=== PATIENT | female | born 1990 | race Hispanic/Latino ===

== ENCOUNTER 2018-02-22 15:55 | Inpatient (IN) | payer MEDICAID ==
[~2018-02-22] VITALS: Ht 160 cm; Wt 87.1 kg
[~2018-02-22 15:55] MED LIST: PREN-147 PO
[2018-02-22] MEDS ORDERED: OXYTOCIN 10 UNIT/1ML 10ML VIAL ONE (16:08)
[2018-02-22] MEDS ORDERED: DURAMORPH PF1 MG/ML 10ML AMP IV ONE (16:08)
[2018-02-22] MEDS ORDERED: LACTATED RINGERS 1000ML 1,000 ML IV SCH (16:30)
[2018-02-22] MEDS ORDERED: CEFAZOLIN SODIUM 1 GM VIAL IVP PRN (16:30)
[2018-02-22 16:39] LABS: MEAN CORPUSCULAR HGB CONC 33.6 g/dL (32.0-36.0); MEAN CORPUSCULAR VOLUME 89.4 fL (79-99); PLATELET COUNT (AUTO) 207 K/uL (130-400); RED BLOOD CELL COUNT(AUTO) 4.48 MIL/uL (4.00-5.50); RED CELL DISTRIBUTION WIDTH 14.7 % (11.0-15.5); WHITE BLOOD COUNT (AUTO) 13.6 K/uL (4.8-10.8)
[2018-02-22 17:14] LABS: APPEARANCE,URINE Clear (CLEAR); BILIRUBIN,URINE Negative (NEGATIVE); COLOR,URINE Yellow (YELLOW); GLUCOSE, URINE (UA) Negative (NEGATIVE); KETONES,URINE Negative (NEGATIVE); LEUKOCYTE ESTERASE ,URINE Negative (NEGATIVE); NITRATE,URINE Negative (NEGATIVE); OCCULT BLOOD,URINE Negative (NEGATIVE); PH,URINE 7.5 (5.0-8.0); PROTEIN,URINE Negative (NEGATIVE); UROBILINOGEN,URINE 0.2 mg/dL (0.2-1.0)
[2018-02-22] MEDS ORDERED: CEFAZOLIN SODIUM 1 GM VIAL ONE (17:15)
[2018-02-22 17:16] LABS: CREATININE 0.6 mg/dL (0.5-1.5); POTASSIUM 3.9 mmol/L (3.5-5.1)
[2018-02-22 17:19] LABS: INR 0.87 (0.85-1.15); PARTIAL THROMBOPLASTIN TIME 27.6 SEC (26.3-35.5); PROTHROMBIN TIME 9.2 SEC (9.6-11.6)
[2018-02-22 17:21] LABS: ALBUMIN 2.8 g/dL (3.5-5.0); BILIRUBIN,TOTAL 0.2 mg/dL (0.2-1.0); URIC ACID 6.9 mg/dL (2.6-7.2)
[2018-02-22] MEDS ORDERED: CEFAZOLIN SODIUM 1 GM VIAL IVP ONE (17:33)
[2018-02-22] MEDS ORDERED: OXYTOCIN-LR 20 UNITS/1000 ML 1,000 ML IV PRN (18:46)
[2018-02-22] MEDS ORDERED: SODIUM CHLORIDE 0.9% 10 ML VIAL IVP PRN (19:00)
[2018-02-22] MEDS ORDERED: DEXTROSE 5 %-0.45 % NACL 1,000 ML IV PRN (19:00)
[2018-02-22] MEDS ORDERED: MORPHINE SULFATE 2 MG/ML 1ML SYG IVP PRN (19:15)
[2018-02-22] MEDS ORDERED: ONDANSETRON HCL 4 MG/2 ML VIAL IVP PRN ×2 (19:15)
[2018-02-22] MEDS ORDERED: HYDROCODONE/ACETAMINOPHEN 5/325 MG TAB PO PRN ×2 (19:15)
[2018-02-22] MEDS ORDERED: EPHEDRINE SULFATE 50 MG/ML AMPULE IVP PRN (19:15)
[2018-02-22] MEDS ORDERED: NALOXONE HCL 0.4 MG/1 ML ML IVP PRN ×2 (19:15)
[2018-02-22] MEDS ORDERED: METOCLOPRAMIDE 10 MG/2 ML VIAL IVP PRN (19:15)
[2018-02-22] MEDS ORDERED: PROMETHAZINE HCL 25 MG/ML 1ML AMPULE IM PRN (19:15)
[2018-02-22] MEDS ORDERED: DiphenhydrAMINE HCL 50 MG/ML VIAL IVP PRN (19:15)
[2018-02-22] MEDS ORDERED: ONDANSETRON HCL 4 MG/2 ML 8 MG in SODIUM CHLORIDE 0.9% 50 ML IVP NR (19:15)
[2018-02-22] MEDS: MEPERIDINE-PF 75 MG/ML SYG IM PRN ×2 (20:49→23:49)
[2018-02-22] MEDS: PROMETHAZINE HCL 25 MG/ML 1ML AMPULE IM PRN ×2 (20:51→23:48)
[2018-02-22 21:28] VITALS: BP 130/80
[2018-02-22] MEDS ORDERED: OXYTOCIN 10 USP UNITS/ML ONE ×2 (22:24→22:25)
[2018-02-23] VITALS (7 sets, daily range): BP systolic 127–145; BP diastolic 79–91
[2018-02-23 05:30] LABS: HEMATOCRIT 36.6 % (36-48); MEAN CORPUSCULAR HEMOGLOBIN 29.8 pg (27.0-33.0); MEAN CORPUSCULAR HGB CONC 33.2 g/dL (32.0-36.0); PLATELET COUNT (AUTO) 130 K/uL (130-400); RED BLOOD CELL COUNT(AUTO) 4.07 MIL/uL (4.00-5.50); RED CELL DISTRIBUTION WIDTH 14.9 % (11.0-15.5); WHITE BLOOD COUNT (AUTO) 14.5 K/uL (4.8-10.8)
[2018-02-23] MEDS ORDERED: MEASLES/MUMPS/RUBELLA VACCINE, LIVE 0.5 ML/VIAL SQ SCH (07:45)
[2018-02-23] MEDS ORDERED: BISACODYL 10 MG SUPP.RECT RC PRN (07:45)
[2018-02-23] MEDS ORDERED: DIPH,PERTUSS(ACELL),TET VAC/PF 0.5 ML VIAL IM SCH (07:45)
[2018-02-23] MEDS: IBUPROFEN 600 MG TABLET PO PRN ×2 (09:38→18:28)
[2018-02-23] MEDS: SIMETHICONE 80 MG TAB.CHEW PO PRN ×3 (09:38→20:44)
[2018-02-23] MEDS: DOCUSATE SODIUM 100 MG CAP PO SCH ×2 (09:38→20:44)
[2018-02-24 04:13] VITALS: BP 132/80
[2018-02-24] MEDS: IBUPROFEN 600 MG TABLET PO PRN ×2 (04:23→14:48)
[2018-02-24 05:15] LABS: HEPATITIS Bs ANTIGEN SCREEN P Negative (Negative)
[2018-02-24 07:41] VITALS: BP 131/86
[2018-02-24] MEDS: SIMETHICONE 80 MG TAB.CHEW PO PRN ×2 (08:41→14:47)
[2018-02-24] MEDS: DOCUSATE SODIUM 100 MG CAP PO SCH (08:41)
[2018-02-24] MEDS: ACETAMINOPHEN-CODEINE 300/30MG TAB PO PRN ×2 (09:51→14:49)
[2018-02-24 11:06] VITALS: BP 136/79
[2018-02-24 15:48] VITALS: BP 130/83
== END 2018-02-24 16:40 | disposition home or self-care (01) | DRG 540 ==
LOC: OBSVTOIN 15:55 → LDH 15:55 → WSH 21:25
PROVIDERS: ADMIT Obstetrics & Gynecology; ATTEND Obstetrics & Gynecology
PROC: 3E0234Z Introduction of Serum, Toxoid and Vaccine into Muscle, Percutaneous Approach (ICD-10-PCS; 2018-02-22)
PROC: 3E0134Z Introduction of Serum, Toxoid and Vaccine into Subcutaneous Tissue, Percutaneous Approach (ICD-10-PCS; 2018-02-22)
PROC: 10D00Z1 Extraction of Products of Conception, Low, Open Approach (ICD-10-PCS; principal; 2018-02-22 17:25)
DX: O34.211 Maternal care for low transverse scar from previous cesarean delivery (principal); O14.94 Unspecified pre-eclampsia, complicating childbirth; Z3A.37 37 weeks gestation of pregnancy; Z37.0 Single live birth; Z23 Encounter for immunization; Z83.3 Family history of diabetes mellitus; Z82.49 Family history of ischemic heart disease and other diseases of the circulatory system
CPT/HCPCS: 36415; 59510; 80053; 80305; 81001; 81003; 84550; 85025; 85027; 85384; 85610; 85730; 86592; 86850; 86900; 86901; 87340; 90715; 96360; 96361; A4344; A4450; A4606; G0378; J0690; J2175; J2274; J2550; J2590; J7120

== ENCOUNTER 2018-10-30 21:14 | Emergency (ER) | payer MEDICAID | END 2018-10-30 22:56 | disposition home or self-care (01) | LOC: EDH 21:14 | DX: R51 Headache (principal); Z98.890 Other specified postprocedural states ==

== ENCOUNTER 2022-04-12 15:44 | Emergency (ER) | payer OTHER, MEDICAID ==
[2022-04-12 16:01] VITALS: BP 131/88
== END 2022-04-12 17:12 | disposition left against medical advice (07) ==
LOC: EDH 15:44
DX: M79.671 Pain in right foot (principal); Z53.21 Procedure and treatment not carried out due to patient leaving prior to being seen by health care provider
CPT/HCPCS: 73630

== ENCOUNTER 2023-07-28 10:15 | Emergency (ER) | payer MEDICAID, OTHER ==
[~2023-07-28] VITALS: Ht 160 cm; Wt 83.9 kg
[2023-07-28 10:22] VITALS: BP 144/84; PULSE 105; RESP 14; O2SAT 100
[2023-07-28 10:59] LABS: APPEARANCE,URINE CLEAR (CLEAR); BILIRUBIN,URINE NEGATIVE (NEGATIVE); GLUCOSE, URINE (UA) NEGATIVE (NEGATIVE); KETONES,URINE NEGATIVE (NEGATIVE); LEUKOCYTE ESTERASE ,URINE NEGATIVE Leu/uL (NEGATIVE); NITRATE,URINE NEGATIVE (NEGATIVE); OCCULT BLOOD,URINE NEGATIVE (NEGATIVE); PROTEIN,URINE NEGATIVE (NEGATIVE); UROBILINOGEN,URINE 0.2 mg/dL (0.2-1.0)
[2023-07-28] MEDS ORDERED: MAG/ALUM/SIMETH 30 ML UDCUP PO ONE (11:00)
[2023-07-28] MEDS ORDERED: FAMOTIDINE 20MG TAB PO ONE (11:00)
[2023-07-28 11:01] LABS: HCG,QUALITATIVE URINE NEGATIVE (NEGATIVE)
[2023-07-28 11:02] LABS: ADD UA MICROSCOPIC NO; COLOR,URINE LIGHT-YELLOW (YELLOW)
[2023-07-28 11:03] LABS: HEMATOCRIT 39.4 % (36-48); MEAN CORPUSCULAR VOLUME 88.3 fL (79-99); RED BLOOD CELL COUNT(AUTO) 4.46 MIL/uL (4.00-5.50); RED CELL DISTRIBUTION WIDTH 12.8 % (11.0-15.5); WHITE BLOOD COUNT (AUTO) 9.4 K/uL (4.8-10.8)
[2023-07-28 11:23] LABS: CREATININE 0.6 mg/dL (0.5-1.5); POTASSIUM 3.6 mmol/L (3.5-5.1)
[2023-07-28 11:27] LABS: ALBUMIN 3.8 g/dL (3.5-5.0); BILIRUBIN,TOTAL 0.3 mg/dL (0.2-1.0)
[2023-07-28] MEDS ORDERED: OMEP40CA21 PO (11:38)
[2023-07-28] MEDS ORDERED: SUCR1TAB PO (11:38)
== END 2023-07-28 11:46 | disposition home or self-care (01) ==
LOC: EDH 10:15
DX: K29.00 Acute gastritis without bleeding (principal); F41.9 Anxiety disorder, unspecified; E78.00 Pure hypercholesterolemia, unspecified; F32.A Depression, unspecified; Z79.899 Other long term (current) drug therapy; Z98.890 Other specified postprocedural states
CPT/HCPCS: 36415; 80053; 81003; 81025; 83690; 84703; 85027; 93005

== ENCOUNTER 2025-03-11 08:56 | Inpatient (IN) | payer SELFPAY ==
[~2025-03-11] VITALS: Ht 160 cm; Wt 85.7 kg
[~2025-03-11 08:56] MED LIST changes: +OMEP40CA21 PO; +SUCR1TAB PO
[2025-03-11 09:29] LABS: IMMATURE GRANULOCYTE ABSOLUTE 0.07 K/uL (0-1); NUCLEATED RED BLOOD CELLS 0.0 % (0.0-0.19); PLATELET COUNT (AUTO) 340 K/uL (130-400); RED BLOOD CELL COUNT(AUTO) 4.61 MIL/uL (4.00-5.50); RED CELL DISTRIBUTION WIDTH 12.1 % (11.0-15.5); WHITE BLOOD COUNT (AUTO) 14.6 K/uL (4.8-10.8)
--- NOTE | 2025-03-11 09:33 | EKG ---
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
[2025-03-11 09:38] LABS: CREATININE 0.6 mg/dL (0.5-1.0); GLOMERULAR FILTR. RATE CALC 121.0 mL/min (>90); GLUCOSE,RANDOM 94.0 mg/dL (70-105); SODIUM SERUM 135.0 mmol/L (136-145); UREA NITROGEN, BLOOD 8.0 mg/dL (7-18)
[2025-03-11 09:40] LABS: ASPARTATE AMINOTRANSFERASE 38.0 U/L (10-37); TOTAL PROTEIN, SERUM 8.0 g/dL (6.0-8.3)
--- NOTE | 2025-03-11 09:55 | ERN ---
General Chief Complaint: Chest Pain Stated Complaint: CP Time Seen by MD: 08:57 Source: patient, family History of Present Illness Initial Comments PATIENT IS A 34-YEAR-OLD FEMALE COMING IN FOR CHEST PRESSURE CHEST DISCOMFORT. PER PATIENT THIS CHEST DISCOMFORT BEGAN EARLIER IN THE MORNING. HE SHE STATES THAT SHE HAS HAD SOMETHING SIMILAR IN THE PAST. SHE DOES HAS A HISTORY OF PREDIABETES CHOLESTEROL HYPERTENSION. Allergies: Coded Allergies: No Known Drug Allergies (Unverified Allergy, Unknown, 10/17/14) Home Meds Active Scripts Sucralfate (Carafate) 1 Gram Tablet, 1 GM PO QID, #40 TAB Prov:SEJAL MIRANAD AGRICULTURIST 07/28/23 Omeprazole (Omeprazole) 40 Mg Capsule.dr, 40 MG PO DAILY, #30 CAP Prov:SEJAL MIRANDA AGRICULTURIST 07/28/23 Reported Medications Vits #90/Iron Fum/FA ( Formula Tablet) 1 Each Tablet, 1 EACH PO DAILY, TAB 12/27/16 Past Medical History Past Medical History: Anxiety, Bipolar, Depression, High Cholesterol, Schizophrenia Past Surgical History: Female( History) History: Not Applicable ROS Dictation CONSTITUTIONAL: NO CHILLS, NO FEVER, NO WEAKNESS, NO DIAPHORESIS, NO MALAISE. HEAD/FACE: NO SIGNS OF TRAUMA. EENT: NO EYE PAIN, NO BLURRED VISION, NO TEARING, NO DOUBLE VISION, NO EAR PAIN, NO EAR DISCHARGE, NO NOSE PAIN, NO NASAL CONGESTION, NO THROAT PAIN, NO THROAT SWELLING, NO MOUTH PAIN. RESPIRATORY: NO COUGH, NO ORTHOPNEA, NO SOB, NO STRIDOR, NO WHEEZING. CARDIOVASCULAR: CHEST PAIN, NO EDEMA, NO PALPITATIONS, NO SYNCOPE. GASTROINTESTINAL/ABDOMINAL: NO ABDOMINAL PAIN, NO CONSTIPATION, NO DIARRHEA, NO NAUSEA, NO VOMITING. GENITOURINARY: NO ABNORMAL DISCHARGE, NO DYSURIA, NO FREQUENT URINATION, NO HEMATURIA. NO COMPLAINTS OF PAIN IN THE GENITALS. MUSCULOSKELETAL: NO BACK PAIN, NO GOUT, NO JOINT PAIN, NO JOINT SWELLING, NO MUSCLE PAIN, NO MUSCLE STIFFNESS, NO NECK PAIN. INTEGUMENTARY: NO CHANGE IN COLOR, NO CHANGE IN HAIR/NAILS, NO DRYNESS, NO LESION, NO LUMPS, NO RASH. NEUROLOGICAL/PSYCH: NO ANXIETY, NOT DEPRESSED, NO EMOTIONAL PROBLEM, NO HEADACHE, NO NUMBNESS, NO PRE-EXISTING DEFICIT, NO HISTORY OF SEIZURES, NO TREMORS, NO WEAKNESS. HEMATOLOGIC/LYMPHATIC: NOT ANEMIC, NO HISTORY OF BLOOD CLOTS, NO APPARENT BLEEDING, NO BRUISING, GLANDS NOT SWOLLEN. ALL SYSTEMS NEGATIVE, EXCEPT NOTED. Physical Exam Physical Exam Dictation VITAL SIGNS: REVIEWED. GENERAL APPEARANCE: ALERT, ORIENTED X3, NO ACUTE DISTRESS, OBESE. HEAD AND FACE: NON-TRAUMATIC. EYES: PERRL, PINK CONJUNCTIVAS, EYELID NO TRAUMA, ANTERIOR CHAMBER CLEAR. EARS: PINNAS INTACT AND NO SIGNS OF TRAUMA OR ERYTHEMA. EAR CANALS CLEAR AND NO DISCHARGE. TMS NO ERYTHEMA. NOSE: NO DISCHARGE, NO BLEEDING. OROPHARYNX: MOUTH NORMAL, TEETH NO CARIES, TONGUE PINK. PHARYNX CLEAR, NO ERYTHEMA. TONSILS NO EXUDATES, NO ABSCESSES NOTED. MUCOUS MEMBRANE MOIST. NECK: SUPPLE, NON-TENDER, NO THYROMEGALY, NO MASSES, NO JVD, NO BRUITS. BREAST: DEFERRED. CHEST: NO TENDERNESS, NO CREPITUS, NO PARADOXICAL MOVEMENT, NO RETRACTIONS. LUNGS: CLEAR, WELL-VENTILATED, SYMMETRIC, NO RALES, NO WHEEZING, NO RHONCHI, NO STRIDOR, GOOD BREATH SOUNDS BILATERALLY. HEART: REGULAR RATE, REGULAR RHYTHM, NO MURMUR, NO GALLOPS. VASCULAR: NO PERIPHERAL EDEMA. ABDOMEN: SOFT, POSITIVE BOWEL SOUNDS, NONDISTENDED, NO GUARDING, NONTENDER, NO REBOUND, NO MASSES NO HEPATOMEGALY, NO SPLENOMEGALY, NO FERMIN'S SIGN, NO HERNIAS. RECTAL: DEFERRED. GENITAL: DEFERRED. NEUROLOGICAL: NORMAL SPEECH, GROSS MOTOR FUNCTION INTACT, GROSS SENSORY FUNCTION INTACT. MUSCULOSKELETAL: NECK NONTENDER, FULL RANGE OF MOTION, BACK NONTENDER, FULL RANGE OF MOTION. EXTREMITIES: NONTENDER, FULL RANGE OF MOTION. SKIN: COLOR PINK, DRY, NO TURGOR, NO RASH, NO LACERATIONS, NO ABRASIONS, NO CONTUSIONS. LYMPHATICS: DEFERRED. Results Laboratory and Microbiology Lab and Micro Result Laboratory Tests Test 03/11/25 09:21 White Blood Count 14.6 K/uL (4.8-10.8) H Red Blood Count 4.61 MIL/uL (4.00-5.50) Hemoglobin 14.2 g/dL (12.0-16.0) Hematocrit 41.7 % (36-48) Mean Corpuscular Volume 90.5 fL (79-99) Mean Corpuscular Hemoglobin 30.8 pg (27.0-33.0) Mean Corpuscular Hemoglobin Concent 34.1 g/dL (32.0-36.0) Red Cell Distribution Width 12.1 % (11.0-15.5) Platelet Count 340 K/uL (130-400) Mean Platelet Volume 9.4 fL (7.5-10.5) Immature Granulocyte % (Auto) 0.5 % (0-1) Neutrophils (%) (Auto) 64.3 % (40.0-77.0) Lymphocytes (%) (Auto) 28.7 % (21.0-51.0) Monocytes (%) (Auto) 4.4 % (3.0-13.0) Eosinophils (%) (Auto) 1.6 % (0.0-8.0) Basophils (%) (Auto) 0.5 % (0.0-5.0) Neutrophils # (Auto) 9.4 K/uL (1.8-7.7) H Lymphocytes # (Auto) 4.2 K/uL (1.0-4.8) Monocytes # (Auto) 0.6 K/uL (0.1-1.0) Eosinophils # (Auto) 0.24 K/uL (0.00-0.70) Basophils # (Auto) 0.07 K/uL (0.00-0.20) Absolute Immature Granulocyte (auto 0.07 K/uL (0-1) Nucleated Red Blood Cells 0.0 % (0.0-0.19) Sodium Level 135 mmol/L (136-145) L Potassium Level 4.1 mmol/L (3.5-5.1) Chloride Level 100 mmol/L (101-111) L Carbon Dioxide Level 25 mmol/L (21-32) Blood Urea Nitrogen 8 mg/dL (7-18) Creatinine 0.6 mg/dL (0.5-1.0) Glomerular Filtration Rate Calc 121 mL/min (>90) Random Glucose 94 mg/dL (70-105) Total Calcium 9.4 mg/dL (8.5-10.1) Total Bilirubin 0.2 mg/dL (0.2-1.0) Aspartate Amino Transf (AST/SGOT) 38 U/L (10-37) H Alanine Aminotransferase (ALT/SGPT) 79 U/L (12-78) H Alkaline Phosphatase 82 U/L (50-136) Troponin I High Sensitivity 72 ng/L (4-50) *H Total Protein 8.0 g/dL (6.0-8.3) Albumin 4.0 g/dL (3.5-5.0) Lipase 42 U/L (16-77) Labs Reviewed?: Yes EKG/XRAY/US/CT/MRI EKG Comment 03/11/2025 TIME 9:04 A.M. VENTRICULAR RATE 99 SINUS RHYTHM DC [address] WAVE ELEVATION OR DEPRESSION MDM MDM: DIFFERENTIAL DIAGNOSIS: NSTEMI, ACS, STEMI, RATIONALE: TESTS CONSIDERED AND ORDERED SECONDARY TO SHARED DECISION MAKING INCLUDE: LABS, ECG AND RADIOLOGY PREVIOUS OUTSIDE RECORDS REVIEWED: OLD ER VISITS. RISK OF COMPLICATION AND/OR MORBIDITY OR MORTALITY OF PATIENT MANAGEMENT: NONE MEDICATIONS-PER MEDICATION RECONCILIATION NEED FOR HOSPITALIZATION: PATIENT DOES MEET CRITERIA FOR HOSPITALIZATION. NEED FOR EMERGENCY MAJOR/MINOR SURGERY: NO THERE ARE NO SOCIAL CONCERNS WITH THIS PATIENT. PRESCRIPTION DRUG MANAGEMENT PRESCRIPTIONS WILL INCLUDE SYMPTOMATIC CARE PATIENT'S PRIOR EXTERNAL MEDICAL RECORDS FROM OTHER ER VISITS WERE REVIEWED BY ME INDICATED. PRIOR TESTING AND RESULTS FROM PREVIOUS VISITS WERE REVIEWED. PRIOR TESTS WERE TAKEN INTO ACCOUNT WITH MEDICAL DECISION MAKING AND RESOURCE UT ILIZATION, INDEPENDENT HISTORIAN/HISTORIANS WERE USED TO OBTAIN COMPLETE MEDICAL HISTORY. I INDEPENDENTLY INTERPRETED THE TEST THAT WERE PERFORMED, RESULTS WERE REVIEWED BY ME AND CONSIDERED FINDINGS ON RADIOLOGY IF ORDERED. MEDICAL MANAGEMENT AND EXAMINATION INTERPRETATION DISCUSSIONS WERE HAD BY ME WITH OTHER QUALIFIED HEALTHCARE PROFESSIONALS INDICATED FOR THE PATIENT'S CAR E. PATIENT WILL BE ADMITTED UNDER THE CARE OF HOSPITALIST GROUP ED Course Orders Procedure Category Date Status Time Cbc With Differential LAB 03/11/25 Complete 08:59 Chest 1vw RAD 03/11/25 Logged 08:59 12 Lead Ekg Tracing- EKG 03/11/25 Resulted Technical 08:59 ,Urine Test LAB 03/11/25 Logged 08:59 Troponin I High LAB 03/11/25 Complete Sensitivity 08:59 Urinalysis Profile LAB 03/11/25 Logged 08:59 Pantoprazole 40mg Inj PHA 03/11/25 Complete (Protonix 40mg Inj 09:00 0.9%Nacl 1000ml (Ns PHA 03/11/25 Complete 1000ml) 09:00 Comprehensive LAB 03/11/25 Complete Metabolic Panel 08:59 Lipase LAB 03/11/25 Complete 08:59 Troponin I High LAB 03/11/25 Logged Sensitivity 09:48 Nitroglycerin 0.4mg PHA 03/11/25 In Process Sl Tab (Nitrostat) 10:00 Drug Screen Urine LAB 03/11/25 Logged 09:53 Testing, LAB 03/11/25 Logged Serum Hcg 09:59 Current Medications Medications (Trade) Dose Ordered Sig/Jojo Route PRN Reason Start Time Stop Time Status Last Admin Dose Admin Nitroglycerin (Nitrostat) 0.4 mg AD PRN SL CHEST PAIN 03/11/25 10:00 04/10/25 09:59 Pantoprazole Sodium (PROTonix 40MG INJ) 40 mg ONCE ONCE IVP 03/11/25 09:00 03/11/25 09:05 DC 03/11/25 10:00 Sodium Chloride 1,000 ml @ 0 mls/hr ONCE ONCE IV 03/11/25 09:00 03/11/25 09:05 DC 03/11/25 10:00 DX & DISP Disposition: Inpatient Decision to Admit Time: 10:04 Departure Impression: Primary Impression: ACS (acute coronary syndrome) Condition: Stable Referrals: SELF,REFERRAL (PCP) SAM PERSAUD MD Mar 11, 2025 09:55
[2025-03-11] MEDS ORDERED: NITROGLYCERIN 0.4 MG SL TAB SL PRN (10:00)
[2025-03-11] MEDS: 0.9%NACL 1000ML 1,000 ML IV ONE (10:00)
[2025-03-11 10:41] LABS: APPEARANCE,URINE CLEAR (CLEAR); GLUCOSE, URINE (UA) NEGATIVE (NEGATIVE); LEUKOCYTE ESTERASE ,URINE NEGATIVE Leu/uL (NEGATIVE); NITRATE,URINE NEGATIVE (NEGATIVE); OCCULT BLOOD,URINE NEGATIVE (NEGATIVE)
[2025-03-11 10:48] LABS: ADD UA MICROSCOPIC NO; AMPHET/METH SCREEN,URINE NEGATIVE (NEGATIVE); BARBITURATE SCREEN, URINE NEGATIVE (NEGATIVE); CANNABINOID SCREEN,URINE NEGATIVE (NEGATIVE); COCAINE SCREEN,URINE NEGATIVE (NEGATIVE)
--- NOTE | 2025-03-11 10:55 | HP ---
[facility] HISTORY [facility] PHYSICAL Date of Service: Mar 11, 2025 Time of Service: 10:54 HISTORY OF PRESENT ILLNESS: Date of service: 03/11/2025 34-year-old female with no significant past medical history who presented to the hospital secondary to chest pain. Patient states she started having chest pain today around 6:00 a.m. in the morning. Pain is located in the epigastric/midsternal area. Pain radiates to the center of her chest. She describes the pain as ' someone was squeezing her chest'. She denied any pa resthesias, pain radiating towards her, jaw. She denied any emesis but has been feeling nauseated. She has also noted diarrhea at home and has around three episodes of loose stools. Denied eating any uncooked food or any sick contacts at home. She denies any melena, hematochezia, hematemesis. Denied any dysuria, changes in her urinary frequency. Denied any fever, cough, shortness for breath, falls, syncopal episode. She currently does not take any medications at home. Secondary to non improving symptoms patient thereafter came to the hospital for further evaluation. Labs labs in the ED were notable for white count of 14.6, hemoglobin was 14.2, platelet count was 340 K, sodium was 135, potassium was 4.1, chloride was 100, AST was 38, ALT was 79, troponin was mildly elevated at 72, albumin was 4.0, lipase was negative, serum was negative. Patient had a chest x-ray done which showed no acute infiltrates. REVIEW OF SYSTEMS CONSTITUTIONAL: Denies fevers, chills, or night sweats. No unintentional weight loss reported. NEUROLOGICAL: Denies headache, amaurosis fugax, motor weakness, sensory deficit, vertigo/spinning sensation, gait abnormalities, or tremors. ENT: No hearing loss, otalgia, otorrhea, rhinitis, rhinorrhea, hoarseness, or sore throat. CARDIOVASCULAR: Positive for chest pain. Denied any PND, orthopnea, palpitations PULMONARY: Denies any shortness of breath, cough, phlegm/sputum, hemoptysis, pleuritic chest pain. GASTROINTESTINAL: Positive for nausea, diarrhea. Denied any constipation, melena, hematochezia, hematemesis GENITOURINARY: Denies frequency, urgency, nocturia, hematuria or incontinence (Storage/Irritative symptoms.) Low urinary stream, straining to void, urinary intermittency or hesitancy, splitting of the voiding stream, terminal dribbling. ENDOCRINOLOGIC: Denies polyuria, polydipsia, polyphagia or heat/cold intolerances. HEMATOLOGIC: Denies thrombophilia/previous clots, or coagulopathy/bleeding disorders. ONCOLOGIC: Denies personal history of malignancy. DERMATOLOGIC: Denies rashes or pruritus. PSYCHIATRIC: Denies any suicidal or homicidal ideation. Denies hallucinations. PAST MEDICAL HISTORY: No Significant past medical history PAST SURGICAL HISTORY: History of x4 PAST SOCIAL HISTORY: Denied any smoking. Drinks alcohol once a month occasionally. Denied any drug use FAMILY HISTORY: History of carotid artery stenosis in father Coded Allergies: No Known Drug Allergies (Unverified Allergy, Unknown, 10/17/14) PHYSICAL EXAM GENERAL APPEARANCE: The patient is awake, alert, and oriented, in no acute c ardiopulmonary distress. NEUROLOGICAL: Cranial nerves II-XII grossly intact. Motor is 5/5 in bilateral upper and lower extremities proximal to distal. No sensory deficits. HEENT: Face is symmetric. Pupils are equal and reactive. Extraocular movements are intact. NECK: Supple. No JVD. No thyromegaly. No submental, submandibular, pre- /postauricular, occipital or supraclavicular lymphadenopathy. CHEST: Normal chest expansion. No Telemetry. Tenderness to palpation in the anterior chest wall LUNGS: Absence of any rales, rhonchi or any wheezing. CARDIOVASCULAR: Regular. S1 and S2 normal. No appreciable rubs, murmurs or gallops. ABDOMEN: Soft, nontender, and nondistended. There is no rebound, voluntary guarding, or rigidity. : Deferred. No Dai. EXTREMITIES: Non-edematous and not cyanotic. No clubbing. Good capillary refill. SKIN: No skin breakdown. LABS: Laboratory: Test 03/11/25 10:16 03/11/25 09:21 Range/Units Urine Color LIGHT-YELLOW YELLOW Urine Appearance CLEAR CLEAR Urine pH 7.5 5.0-8.0 Urine Specific [place] 1.025 1.001-1.031 Urine Protein NEGATIVE NEGATIVE mg/dL Urine Glucose (UA) NEGATIVE NEGATIVE mg/dL Urine Ketones NEGATIVE NEGATIVE mg/dL Urine Occult Blood NEGATIVE NEGATIVE Urine Nitrate NEGATIVE NEGATIVE Urine Bilirubin NEGATIVE NEGATIVE mg/dL Urine Urobilinogen 0.2 0.2-1.0 mg/dL Urine Leukocyte Esterase NEGATIVE NEGATIVE Valerie/uL Urine Opiates Screen NEGATIVE NEGATIVE Urine Barbiturates Screen NEGATIVE NEGATIVE Urine Phencyclidine Screen NEGATIVE NEGATIVE Urine Amphetamines Screen NEGATIVE NEGATIVE Urine Benzodiazepines Screen NEGATIVE NEGATIVE Urine Cocaine Screen NEGATIVE NEGATIVE Urine Marijuana (THC) Screen NEGATIVE NEGATIVE White Blood Count 14.6 H 4.8-10.8 K/uL Red Blood Count 4.61 4.00-5.50 MIL/uL Hemoglobin 14.2 12.0-16.0 g/dL Hematocrit 41.7 36-48 % Mean Corpuscular Volume 90.5 79-99 fL Mean Corpuscular Hemoglobin 30.8 27.0-33.0 pg Mean Corpuscular Hemoglobin Concent 34.1 32.0-36.0 g/dL Red Cell Distribution Width 12.1 11.0-15.5 % Platelet Count 340 130-400 K/uL Mean Platelet Volume 9.4 7.5-10.5 fL Immature Granulocyte % (Auto) 0.5 0-1 % Neutrophils (%) (Auto) 64.3 40.0-77.0 % Lymphocytes (%) (Auto) 28.7 21.0-51.0 % Monocytes (%) (Auto) 4.4 3.0-13.0 % Eosinophils (%) (Auto) 1.6 0.0-8.0 % Basophils (%) (Auto) 0.5 0.0-5.0 % Neutrophils # (Auto) 9.4 H 1.8-7.7 K/uL Lymphocytes # (Auto) 4.2 1.0-4.8 K/uL Monocytes # (Auto) 0.6 0.1-1.0 K/uL Eosinophils # (Auto) 0.24 0.00-0.70 K/uL Basophils # (Auto) 0.07 0.00-0.20 K/uL Absolute Immature Granulocyte (auto 0.07 0-1 K/uL Nucleated Red Blood Cells 0.0 0.0-0.19 % Sodium Level 135 L 136-145 mmol/L Potassium Level 4.1 3.5-5.1 mmol/L Chloride Level 100 L 101-111 mmol/L Carbon Dioxide Level 25 21-32 mmol/L Blood Urea Nitrogen 8 7-18 mg/dL Creatinine 0.6 0.5-1.0 mg/dL Glomerular Filtration Rate Calc 121 >90 mL/min Random Glucose 94 70-105 mg/dL Total Calcium 9.4 8.5-10.1 mg/dL Total Bilirubin 0.2 0.2-1.0 mg/dL Aspartate Amino Transf (AST/SGOT) 38 H 10-37 U/L Alanine Aminotransferase (ALT/SGPT) 79 H 12-78 U/L Alkaline Phosphatase 82 50-136 U/L Troponin I High Sensitivity 72 *H 4-50 ng/L Total Protein 8.0 6.0-8.3 g/dL Albumin 4.0 3.5-5.0 g/dL Lipase 42 16-77 U/L Serum Test, Qualitative NEGATIVE NEGATIVE Current Medications Medications (Trade) Dose Ordered Sig/Jojo Route PRN Reason Start Time Stop Time Status Last Admin Dose Admin Nitroglycerin (Nitrostat) 0.4 mg AD PRN SL CHEST PAIN 03/11/25 10:00 04/10/25 09:59 DIAGNOSTICS / RADIOLOGY: [ ] ASSESSMENT: Chest pain ACS rule out POA: Differential musculoskeletal versus GI versus ACS Troponin elevation nonspecific Suspected gastroenteritis Leukocytosis likely in setting of dehydration and suspected gastroenteritis Obesity BMI 33.5 Mild LFT elevation PLAN: - patient to be admitted to medical-surgical unit with telemetry -in reference to chest pain. We will trend troponins q.6 hours to rule out ACS. We will obtain echocardiogram. We will also obtain a CT abdomen pelvis. Secondary to troponin elevation we will request consultation with Cardiology -obtain a stool PCR panel. The patient to be started on NS for gentle hydration. Start patient on Rocephin -in reference to mild LFT elevation. Obtain a hepatitis panel. Monitor LFTs were now -check TSH, procalcitonin, CRP, D-dimer slight -further orders per hospitalization course. Advanced Care Planning Which of the following were discussed: Hospice care: Yes __ No _x_ Therapeutic options: Yes __ No __ Advance directives: Yes __ No __ Other discussions: Discussed with who?: Patient (Patient, family or surrogates) Voluntary nature of this service was explained to the patient? Yes _x_ No __ Amount of time spent: 25 minutes ALY Garcia MD, MD Mar 11, 2025 10:54
[2025-03-11] MEDS ORDERED: MAGNESIUM 2GM PREMIX 50ML 50 ML IV PRN (11:30)
[2025-03-11] MEDS ORDERED: PoTASSium chl 10% ELIXIR 20MEQ 20 MEQ/15 ML UDCUP PO PRN (11:30)
[2025-03-11] MEDS ORDERED: PoTASSium chloRIDE 20MEQ ER 20 MEQ ERTAB PO PRN (11:30)
--- NOTE | 2025-03-11 11:53 | HMCIMG ---
EXAM: CT Abdomen and Pelvis without IV contrast CLINICAL HISTORY: Epigastric and chest pain. TECHNIQUE: Thin collimated axial CT images of the abdomen and pelvis were obtained with sagittal and coronal reformatted images also submitted. CT scan is done according to ALARA (As Low As Reasonably Achievable). CONTRAST: None. COMPARISON: None. FINDINGS: Unremarkable visualized lung parenchyma. No focal abnormality within the gallbladder, pancreas, spleen, adrenals. Diffuse fatty infiltration of the liver. A tiny 2 mm nonobstructive calculus at the upper pole calyx of the left kidney. There is no obvious bowel wall thickening. Bowel loops are normal in caliber without evidence of obstruction or ileus. The appendix is normal. There is no abnormality within the urinary bladder. Unremarkable reproductive organs. No lymphadenopathy. No free fluid. Small umbilical hernia containing fat. There is no acute osseous abnormality. IMPRESSIONS: No acute process in the abdomen or pelvis. Tiny nonobstructive left renal calculus. Diffuse fatty infiltration of the liver. /[place]
--- NOTE | 2025-03-11 11:56 | HMCIMG ---
EXAM: CR Chest, 1 View. CLINICAL HISTORY: cp COMPARISON: None provided. FINDINGS: LUNGS: There is no mass, infiltrate, or acute pulmonary abnormality. PLEURAL SPACES: No pleural effusion or pneumothorax. MEDIASTINUM: The cardiomediastinal silhouette is within normal limits. BONES: No acute osseous abnormality. IMPRESSION: No acute cardiopulmonary pathology is evident. /[place]
--- NOTE | 2025-03-11 12:01 | CONS ---
We are consulted for chest pain with borderline troponin in a 34-year-old female with a normal ECG. On closer scrutiny, the patient describes epigastric burning of an intense nature, similar to previous gastritis symptoms but more intense. She has had these discomforts off and on over recent years. She has never had any exertional component, including now. The symptoms occur randomly. The current episode was present when she awoke at 6:00 a.m. and has been continuous to present and the ECG is normal. Current symptoms are associated with nausea and abdominal discomfort. The patient says sometimes she experiences a fullness or pressure in the retrosternal area, but most of her discomfort is in the epigastrium. 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 Again, there was no exertional component to any of her symptoms. Initial troponin was 72 and follow up troponin was 60; BNP is less than five. Chest x-ray is normal. ECG is normal. ALT and AST are mildly elevated but lipase is normal. There is mentioned in the chart of pre diabetes but her A1c is 5.3, normal (not prediabetic). Review of systems is negative for exertional chest pain or chest pressure, fatigue on exertion, or dyspnea on exertion. It is negative for orthopnea or paroxysmal nocturnal dyspnea. It is positive for chest discomfort as described above which is burning in character generally, sometimes pressure-like, occurs randomly and is usually prolonged. Current episode has lasted at least 6 hours. There was no history of asthma or wheezing, no history of claudication or pedal edema, but there is a positive history of similar symptoms with esophagitis and gastritis in the past. With respect to risk factors, patient believes her father had a heart problem. A1c is normal. There is mentioned of hypertension and dyslipidemia in the chart. Physical exam is notable for an overweight female who appears comfortable. No JVD, normal carotid volume, no rales or rhonchi, nonlabored respiration, no chest wall tenderness, normal bowel sounds, protuberant abdomen without tympany or distention, normal peripheral pulses, no pedal edema, skin warm and dry and patient is oriented in all spheres. Impression and recommendation: No evidence of a cardiac illness. Borderline troponins are actually trending down and could be from some other inflammatory disease or spuriously elevated. 6 hours of chest pain with normal ECG, no dyspnea, no diaphoresis, and history of similar symptoms from GI etiology points toward a GI illness. I do not recommend further cardiac evaluation or treatment at this time. Patient History: FH: ADHD (attention deficit hyperactivity disorder) SON SON Family history: Diabetes mellitus FATHER, Onset: Family history: Hypertension FATHER, Onset: Vitals/Labs Vital Signs Date Time Temp Pulse Resp B/P (MAP) Pulse Ox O2 Delivery O2 Flow Rate FiO2 03/11/25 10:26 86 18 113/80 97 Room Air* 0 21 03/11/25 09:05 98.4 Laboratory Tests 03/11/25 09:21 Allergies: Coded Allergies: No Known Drug Allergies (Unverified Allergy, Unknown, 10/17/14) Medications Current Medications Pantoprazole Sodium 40 mg ONCE ONCE IVP Last administered on 03/11/25at 10:00; Start 03/11/25 at 09:00; Stop 03/11/25 at 09:05; Status DC Sodium Chloride 1,000 ml @ 0 mls/hr ONCE ONCE IV Last administered on 03/11/25at 10:00; Start 03/11/25 at 09:00; Stop 03/11/25 at 09:05; Status DC Nitroglycerin 0.4 mg AD PRN SL; Start 03/11/25 at 10:00; Stop 04/10/25 at 09:59 Famotidine 20 mg BID IV; Start 03/11/25 at 21:00; Stop 04/10/25 at 20:59 Sodium Chloride 1,000 ml @ 100 mls/hr Q10H IV; Start 03/11/25 at 11:00; Stop 04/10/25 at 10:59 Acetaminophen 500 mg Q6H PRN PO; Start 03/11/25 at 11:00; Stop 04/10/25 at 10:59 Morphine Sulfate 2 mg Q6H PRN IVP; Start 03/11/25 at 11:00; Stop 03/18/25 at 10:59 Aspirin 81 mg DAILY PO; Start 03/12/25 at 09:00; Stop 04/11/25 at 08:59 Ceftriaxone Sodium 1 gm Q24H IVPB; Start 03/11/25 at 11:00; Stop 03/21/25 at 10:59 Ondansetron HCl 4 mg Q6H PRN IVP; Start 03/11/25 at 11:30; Stop 04/10/25 at 11:29 Potassium Chloride 100 ml @ 100 mls/hr AD PRN IV; Start 03/11/25 at 11:30; Stop 04/10/25 at 11:29 Potassium Chloride 20 meq AD PRN PO; Start 03/11/25 at 11:30; Stop 04/10/25 at 11:29 Potassium Chloride 20 meq AD PRN PO; Start 03/11/25 at 11:30; Stop 04/10/25 at 11:29 Magnesium Sulfate 50 ml @ 0 mls/hr PROTOCOL PRN IV; Start 03/11/25 at 11:30; Stop 04/10/25 at 11:29 ARSENIO MURRAY MD Mar 11, 2025 12:01
[2025-03-11] MEDS: 0.9%NACL 1000ML 1,000 ML IV SCH (12:47)
[2025-03-11 12:54] LABS: SARS-CoV-2, RNA, NAAT NEGATIVE SARS CoV-2 (NEGATIVE)
[2025-03-11 13:02] LABS: INFLUENZA TYPE A Negative For Type A (NEGATIVE); INFLUENZA TYPE B Negative For Type B (NEGATIVE)
--- NOTE | 2025-03-11 13:55 | NUR ---
DCP: HOME Pt, her Wm Conroy [id number] and heir 4 kids, ages 10,9,8,7 live in [facility]. 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 Pt able to do home management and meal prep for family. Uses no DME or in home care services. PCP is Angélica Solano uses [facility] for rx needs. Pt denies dc needs and will return home a dc. Addendum: 03/11/25 at 1406 by ATUL TORRES SS Amended: Links added.
--- NOTE | 2025-03-11 16:55 | CONS ---
GASTROENTEROLOGY CONSULTATION NOTE Date of Consultation: Mar 11, 2025 Time of Consultation: 16:48 History of Present Illness: [ This is a 34-year-old female patient with past medical history for obesity, hypertension, hyperlipidemia, anxiety and depression, bipolar and schizophrenia who presented to the emergency room with complaints of chest pressure and chest discomfort. Chest x-ray showed no acute cardiopulmonary pathology. CT of abdomen and pelvis showing no acute process in the abdomen or pelvis. Tiny nonobstructive left renal calculus. Diffuse fatty infiltration of the liver. Initial WBC of 14.6, hemoglobin 14.2, hematocrit 41.7, platelets 340. Chemistry significant for sodium of 135, chloride 100, BUN eight, creatinine 0.6, total bilirubin of 0.2, AST 38, ALT 79, alkaline phosphatase of 82. Troponin elevated at 72, total protein eight, albumin four, lipase 42. D-dimer 241. UA and urine toxicology negative. We were consulted for persistent epigastric pain, history of gastritis, fatty liver. Patient pending Cardiology consult. On exam patient is in sf in stretcher bed 14. Her respirations are unlabored. BBS clear. Abdomen is soft but tender to epigastric region. Patient reported having some nausea. Patient tolerated soft diet given for dinner. POC discussed and recommendations for endoscopic evaluation given. All her questions were answered and she agreed to proceed. Will plan for EGD on 03/13/25 since patient had regular diet and cardiac evaluation is pending. Patient and mother agreed ] Review of Systems: CONSTITUTIONAL: No malaise or change in sensation of wellbeing. ENMT: No rhinorrhea, otorrhea, sinus pain, ear ache. CARDIOVASCULAR: No angina, palpitations, orthopnea or paroxysmal dyspnea. RESPIRATORY: No SOB. GASTROINTESTINAL: No abdominal pain, nausea, vomiting, diarrhea, hematemesis, me carlos or change in the patient's habitual bowel movements consistency/number. GENITOURINARY: No dysuria, hematuria or change in bladder continence. MUSCULOSKELETAL: No new muscle pain or decrease in muscular strength. No new joint swelling, redness or tenderness. SKIN: No new rash. Past Medical History: obesity, hypertension, hyperlipidemia, anxiety and depression, bipolar and schizophrenia Coded Allergies: No Known Drug Allergies (Unverified Allergy, Unknown, 10/17/14) Physical Exam: GEN: Awake, alert, oriented in person, time and place, and in no acute distress. HEENT: No rhinorrhea. Oral pharyngeal mucosa is pink, moist and within normal limits. CHEST: Inspection, and palpation of the chest were unremarkable. Lung auscult ation revealed normal breath sounds bilaterally. CARDIAC: PMI is within normal limits. Heart sounds are regular. ABD: Soft, tender to epigastric region, and not distended. No peritoneal signs on palpation. No organomegaly. Normal bowel sounds. Last bm: 03/09/25 EXT: No cyanosis or clubbing. No edema. SKIN: Intact. No rashes. JOINTS: No evidence of synovitis or acute arthritis. NEURO: Alert and oriented to name, place and person. No focal motor deficits. Normal speech. Strength is normal. Vital Sign (Last 24 Hours) 03/11/25 16:09 Temp 97.9 Pulse 84 Resp 17 B/P (MAP) 121/85 Pulse Ox 95 O2 Delivery Room Air* O2 Flow Rate 0 FiO2 21 Laboratory: [ ] Laboratory: Test 03/11/25 12:24 03/11/25 11:21 03/11/25 10:16 03/11/25 09:21 Range/Units Influenza Type A Antigen Negative For Type A NEGATIVE Influenza Type B Antigen Negative For Type B NEGATIVE SARS-CoV-2, RNA, NAAT NEGATIVE SARS CoV-2 NEGATIVE Troponin I High Sensitivity 60 *H 4-50 ng/L Urine Color LIGHT-YELLOW YELLOW Urine Appearance CLEAR CLEAR Urine pH 7.5 5.0-8.0 Urine Specific Taberg 1.025 1.001-1.031 Urine Protein NEGATIVE NEGATIVE mg/dL Urine Glucose (UA) NEGATIVE NEGATIVE mg/dL Urine Ketones NEGATIVE NEGATIVE mg/dL Urine Occult Blood NEGATIVE NEGATIVE Urine Nitrate NEGATIVE NEGATIVE Urine Bilirubin NEGATIVE NEGATIVE mg/dL Urine Urobilinogen 0.2 0.2-1.0 mg/dL Urine Leukocyte Esterase NEGATIVE NEGATIVE Valerie/uL Urine Opiates Screen NEGATIVE NEGATIVE Urine Barbiturates Screen NEGATIVE NEGATIVE Urine Phencyclidine Screen NEGATIVE NEGATIVE Urine Amphetamines Screen NEGATIVE NEGATIVE Urine Benzodiazepines Screen NEGATIVE NEGATIVE Urine Cocaine Screen NEGATIVE NEGATIVE Urine Marijuana (THC) Screen NEGATIVE NEGATIVE White Blood Count 14.6 H 4.8-10.8 K/uL Red Blood Count 4.61 4.00-5.50 MIL/uL Hemoglobin 14.2 12.0-16.0 g/dL Hematocrit 41.7 36-48 % Mean Corpuscular Volume 90.5 79-99 fL Mean Corpuscular Hemoglobin 30.8 27.0-33.0 pg Mean Corpuscular Hemoglobin Concent 34.1 32.0-36.0 g/dL Red Cell Distribution Width 12.1 11.0-15.5 % Platelet Count 340 130-400 K/uL Mean Platelet Volume 9.4 7.5-10.5 fL Immature Granulocyte % (Auto) 0.5 0-1 % Neutrophils (%) (Auto) 64.3 40.0-77.0 % Lymphocytes (%) (Auto) 28.7 21.0-51.0 % Monocytes (%) (Auto) 4.4 3.0-13.0 % Eosinophils (%) (Auto) 1.6 0.0-8.0 % Basophils (%) (Auto) 0.5 0.0-5.0 % Neutrophils # (Auto) 9.4 H 1.8-7.7 K/uL Lymphocytes # (Auto) 4.2 1.0-4.8 K/uL Monocytes # (Auto) 0.6 0.1-1.0 K/uL Eosinophils # (Auto) 0.24 0.00-0.70 K/uL Basophils # (Auto) 0.07 0.00-0.20 K/uL Absolute Immature Granulocyte (auto 0.07 0-1 K/uL Nucleated Red Blood Cells 0.0 0.0-0.19 % D-Dimer Quantitative (PE/DVT) 241 0-500 ng/mL Sodium Level 135 L 136-145 mmol/L Potassium Level 4.1 3.5-5.1 mmol/L Chloride Level 100 L 101-111 mmol/L Carbon Dioxide Level 25 21-32 mmol/L Blood Urea Nitrogen 8 7-18 mg/dL Creatinine 0.6 0.5-1.0 mg/dL Glomerular Filtration Rate Calc 121 >90 mL/min Random Glucose 94 70-105 mg/dL Hemoglobin A1c 5.3 4.0-6.0 % Estimated Average Glucose (eAG) 105 70-126 mg/dL Total Calcium 9.4 8.5-10.1 mg/dL Total Bilirubin 0.2 0.2-1.0 mg/dL Aspartate Amino Transf (AST/SGOT) 38 H 10-37 U/L Alanine Aminotransferase (ALT/SGPT) 79 H 12-78 U/L Alkaline Phosphatase 82 50-136 U/L C-Reactive Protein, Quantitative 5.60 H 0.5-3.0 mg/L B-Type Natriuretic Peptide < 5 0-100 pg/mL Total Protein 8.0 6.0-8.3 g/dL Albumin 4.0 3.5-5.0 g/dL Lipase 42 16-77 U/L Procalcitonin < 0.05 L 0.05-0.5 ng/mL Thyroid Stimulating Hormone (TSH) 2.19 0.36-3.74 uIU/mL Serum Test, Qualitative NEGATIVE NEGATIVE Current Medications Medications (Trade) Dose Ordered Sig/Jojo Route PRN Reason Start Time Stop Time Status Last Admin Dose Admin Acetaminophen (TYLenol 500MG TAB) 500 mg Q6H PRN PO MILD PAIN (1-3) 03/11/25 11:00 04/10/25 10:59 Aspirin (Aspirin 81mg Chew Tab) 81 mg DAILY PO 03/12/25 09:00 04/11/25 08:59 Ceftriaxone Sodium (ROCEphine 1G INJ) 1 gm Q24H IVPB 03/11/25 11:00 03/21/25 10:59 03/11/25 12:47 1 GM Famotidine (Pepcid 20mg Vial) 20 mg BID IV 03/11/25 21:00 04/10/25 20:59 Magnesium Sulfate 50 ml @ 0 mls/hr PROTOCOL PRN IV hypomagnesemia 03/11/25 11:30 04/10/25 11:29 Morphine Sulfate (morPHINE 2MG SYG) 2 mg Q6H PRN IVP SEVERE PAIN (7-10) 03/11/25 11:00 03/18/25 10:59 Nitroglycerin (Nitrostat) 0.4 mg AD PRN SL CHEST PAIN 03/11/25 10:00 04/10/25 09:59 Ondansetron HCl (zoFRAN 4MG INJ) 4 mg Q6H PRN IVP NAUSEA/VOMITING 03/11/25 11:30 04/10/25 11:29 Potassium Chloride 100 ml @ 100 mls/hr AD PRN IV POTASSIUM PROTOCOL 03/11/25 11:30 04/10/25 11:29 Potassium Chloride (K-Dur/Klor-Con 20meq) 20 meq AD PRN PO POTASSIUM PROTOCOL 03/11/25 11:30 04/10/25 11:29 Potassium Chloride (KCl 10% Elixir 20meq/15ml) 20 meq AD PRN PO POTASSIUM PROTOCOL 03/11/25 11:30 04/10/25 11:29 Sodium Chloride 1,000 ml @ 100 mls/hr Q10H IV 03/11/25 11:00 04/10/25 10:59 03/11/25 12:47 100 MLS/HR Diagnostics / Radiology: [COPY/PASTE HERE IF NO REPORTS PLEASE DELETE SECTION] Assessment: [Epigastric pain Chest pain Gastritis Hypertension Hyperlipidemia ] Plan: Case discussed with Dr. Weiss [Cardiac clearance requested for EGD Plan for EGD on 03/13/25 Clear liquids beginning on 03/12/25 Recommend patient continue with famotidine 20mg bid Please call with questions, concerns, and change in clinical status. Thank you for allowing us to be part of this patient's care. ] SORAYA WISE NP Mar 11, 2025 16:55
--- NOTE | 2025-03-11 18:23 | HMCIMG ---
EXAM: US Abdomen, Right Upper Quadrant. CLINICAL HISTORY: Abdominal pain. TECHNIQUE: Right upper quadrant sonography performed with image documentation. COMPARISON: None provided. FINDINGS: LIVER: Enlarged in size, measuring 16.7 cm, with diffusely increased parenchymal echogenicity suggestive of fatty changes (grade III). No focal lesion or mass is seen. GALLBLADDER: The gallbladder appears normal. No gallbladder wall thickening is seen. No gallstones are evident. COMMON BILE DUCT: No dilatation. PANCREAS: The distal pancreas is obscured by bowel gas. The visualized portion of the pancreas appears within normal limits. RIGHT KIDNEY: Unremarkable. Normal renal contours. No renal mass or calculus. No hydronephrosis. IMPRESSION: 1. Hepatomegaly with diffuse fatty changes, grade III. /Rousseau
[2025-03-11] MEDS ORDERED: FAMO-136 PO (18:43)
--- NOTE | 2025-03-11 18:45 | NUR ---
PT WOULD LIKE TO BE DISCHARGED SHE FEELS MUCH BETTER THAN WHEN SHE CAME IN. INFORMED DR KAPLAN
[2025-03-11] MEDS: FAMOTIDINE 20MG VIAL IV SCH (20:50)
[2025-03-11 21:08] VITALS: BP 125/80; PULSE 87; RESP 18; TEMP 98.6; O2SAT 99
--- NOTE | 2025-03-11 22:02 | NUR ---
PATIENT GIVEN DISCHARGE INSTRUCTIONS, VERBALIZED UNDERSTANDING
[2025-03-12 04:09] LABS: HEPATITIS A IGM ANTIBODY Non-Reactive (Nonreactive); HEPATITIS B CORE IGM ANTIBODY Non-Reactive (Negative)
--- NOTE | 2025-03-12 07:37 | HMCSR ---
APPROVED REPORT EXAM: Two-dimensional and M-mode echocardiogram with Doppler and color Doppler. INDICATION ICD: Chest Pain 2D Dimensions IVSd0.7 (0.7-1.1cm)LVEF(%)46.0 (>50%)LVED Vol(simp.)60.0 mL LVDd4.2 (3.8-5.6cm)FS(%)23 %LVES Vol(simp.)26.0 mL PWd0.8 (0.7-1.1cm)LA (2D)3.5 (1.6-4.0cm)LVEF(%, simp.)56 % IVSs1.0 cmAo Root(2D)3.0 (2.0-3.7cm) LVDs3.3 (2.5-4.0cm)LVOT diam2.1 (1.8-2.4cm) PWs1.1 cm Deformation Strain Apical 4-18.1 % Apical 2-18.3 % Apical 3-19.9 % Global Strain-18.7 % M-Mode Dimensions EPSS0.8 cm LA (MM)3.4 (1.6-4.0cm) Ao Root(MM)2.3 (2.0-3.7cm) Aortic Valve AoV Vmax1.1 m/Lashell Peak GR4.8 mmHgLVOT Vmax0.9 m/s AoV VTI0.2 mAo Mean GR3.0 mmHgLVOT VTI0.19 m BROOK[place]NN (VMAX)2.84 cm2AVA (VTI) 3.3 cm2 Mitral Valve MV E Vmax85.2 cm/sDECEL Bumt478 ms MV A Vmax59.8 cm/sP 1/2 T45 ms E/A ratio1.4MVA (PHT)4.9 cm2 TDI E/E' Medial9.8E/E' Lateral8.4 Medial E' Peak V8.65 cm/sLateral E' Peak V10.17 cm/s Pulmonary Valve PV Vmax1.0 m/sPV VTI0.21 mPV Mean GR2.1 mmHg PV Peak GR4.0 mmHg Tricuspid Valve TR Vmax1.7 m/sRAP (EST) 3 [id number] mmHg TR Peak GR11.7 mmHg Left Ventricle The left ventricle is normal size. GLS -19.0% There is normal LV segmental wall motion. There is norm al left ventricular wall thickness. The LVEF is > 55%. 3D volume EF 57% The left ventricular diastoli c function is normal. Right Ventricle The right ventricle is normal size. The right ventricular systolic function is normal. Atria The left atrium size is normal. The right atrium size is normal. Aortic Valve The aortic valve is normal in structure. No aortic regurgitation is present. There is no aortic valvu lar stenosis. Mitral Valve The mitral valve is normal in structure. There is no mitral valve regurgitation noted. There is no mi tral valve stenosis. Tricuspid Valve The tricuspid valve is normal in structure. There is trace of tricuspid valve regurgitation noted. Pulmonic Valve The pulmonary valve is normal in structure. There is trace of pulmonic valvular regurgitation. Great Vessels The aortic root is normal in size. The IVC is normal in size and collapses >50% with inspiration. Pericardium There is no pericardial effusion. Other Information Quality : Adequate Conclusion The LVEF is > 55%. 3D volume EF 57% GLS -19.0% There is normal LV segmental wall motion.
[2025-03-12] MEDS ORDERED: ASPIRIN 81MG CHEW TAB PO SCH (09:00)
--- NOTE | 2025-03-13 08:40 | DS ---
Discharge Summary Hospital Course Summary: Date of discharge: 03/11/2025. This is a late dictated note 34-year-old female with no significant past medical history who presented to the hospital secondary to chest pain. Patient states she started having chest pain today around 6:00 a.m. in the morning. Pain is located in the epigastri c/midsternal area. Pain radiates to the center of her chest. She describes the pain as ' someone was squeezing her chest'. She denied any paresthesias, pain radiating towards her, jaw. She denied any emesis but has been feeling nauseated. She has also noted diarrhea at home and has around three episodes of loose stools. Denied eating any uncooked food or any sick contacts at home. She denies any melena, hematochezia, hematemesis. Denied any dysuria, changes in her urinary frequency. Denied any fever, cough, shortness for breath, falls, syncopal episode. She currently does not take any medications at home. Secondary to non improving symptoms patient thereafter came to the hospital for further evaluation. The patient during hospitalization was noted to have troponin of72 which was trended and decreased to 62. Due to chest pain and troponin elevation cardiology was consulted. Patient was evaluated by Cardiology and felt her symptoms were related to GI etiology. Patient's troponin elevation was noted to be nonspecific. She underwent a echocardiogram which is 57%. Cardiology signed of and did not recommend any further cardiac evaluation. During hospitalization Gastroenterology was also consulted. Patient was treated with antacid for suspected GERD. Recommended EGD with patient declined the procedure and did not want to stay for further workup. Patient was adamant about leaving and did not want to stay for further workup. She wants to follow up with GI f patient. Additionally she underwent a CT abdomen pelvis which showed a acute intra- abdominal process. She was noted to have diffuse fatty liver. The patient will follow up with GI for continued surveillance. I have recommended patient lifestyle modification with weight loss. The patient will follow up with GI for continued close monitoring of her LFT. Patient to follow up with her primary care provider in 2-3 days for continued monitoring of her symptoms. She was given ER precautions and recommended to come back to the hospital if any of her symptoms got worse. The patient understood the plan of care and was agreeable to discharge instructions. Anvilsmith(s): Cardiology, GI Assessment/Plan: ASSESSMENT: Chest pain ACS ruled out, chest pain likely in setting of GI etiology likely gastritis Troponin elevation nonspecific Suspected gastroenteritis Leukocytosis likely in setting of dehydration and suspected gastroenteritis Obesity BMI 33.5 Mild LFT elevation likely in setting of fatty liver Fatty liver PLAN: - the patient was evaluated by Cardiology. Cardiology recommended no further workup. Her EF was noted to be 57%. She underwent a CT abdomen pelvis which showed fatty liver. Patient was recommended weight loss. Patient requested to be discharged today. -patient to follow up with her primary care provider for continued monitoring of her symptoms. Patient will follow up with GI in one week -patient will be given prescription for Pepcid b.i.d.. Advanced Care Planning Which of the following were discussed: Hospice care: Yes __ No _x_ Therapeutic options: Yes __ No __ Advance directives: Yes __ No __ Other discussions: Discussed with who?: Patient (Patient, family or surrogates) Voluntary nature of this service was explained to the patient? Yes _x_ No __ Amount of time spent: 25 minutes Aly Kaplan MD Discharge Instructions: - follow up primary care provider in 2-3 days. The patient to follow up with GI clinic in one week - recommended close monitoring of symptoms at home. Patient was given ER precautions. Aly Kaplan MD Home Medications: Active Scripts Famotidine (Pepcid) 20 Mg Tablet, 1 TAB PO BID for 10 Days, #20 TAB 0 Refills Prov:ALY KAPLAN MD 03/11/25 Discontinued Reported Medications Vits #90/Iron Fum/FA ( Formula Tablet) 1 Each Tablet, 1 EACH PO DAILY, TAB 12/27/16 Discontinued Scripts Sucralfate (Carafate) 1 Gram Tablet, 1 GM PO QID, #40 TAB Prov:SEJAL MIRANDA NP 07/28/23 Omeprazole (Omeprazole) 40 Mg Capsule.dr, 40 MG PO DAILY, #30 CAP Prov:SEJAL MIRANDA NP 07/28/23 Time spent arranging discharge: 31-60 minutes ALY KAPLAN MD Mar 13, 2025 08:40
== END 2025-03-11 21:59 | disposition home or self-care (01) | DRG 392 ==
LOC: EDH 08:56 → EDHIP 08:57
PROVIDERS: ADMIT Internal Medicine; ATTEND Internal Medicine
DX: K29.70 Gastritis, unspecified, without bleeding (principal); D72.829 Elevated white blood cell count, unspecified; E66.9 Obesity, unspecified; E78.00 Pure hypercholesterolemia, unspecified; E86.0 Dehydration; F20.9 Schizophrenia, unspecified; E78.5 Hyperlipidemia, unspecified; K52.9 Noninfective gastroenteritis and colitis, unspecified; Z20.822 Contact with and (suspected) exposure to COVID-19; F31.9 Bipolar disorder, unspecified; I10 Essential (primary) hypertension; K76.0 Fatty (change of) liver, not elsewhere classified; Z82.49 Family history of ischemic heart disease and other diseases of the circulatory system; Z83.3 Family history of diabetes mellitus; Z98.891 History of uterine scar from previous surgery; Z79.899 Other long term (current) drug therapy; Z68.33 Body mass index [BMI] 33.0-33.9, adult
CPT/HCPCS: 36415; 71045; 74176; 76376; 76705; 80053; 80074; 80305; 81003; 83036; 83690; 83880; 84145; 84443; 84484; 84703; 85025; 85378; 86140; 87635; 87804; 93005; 93306; 93356; 96374; 99285; G0378; J0696; J2470; J7030

== ENCOUNTER 2025-03-14 18:51 | Emergency (ER) | payer SELFPAY ==
[~2025-03-14] VITALS: Ht 160 cm; Wt 85.3 kg
[~2025-03-14 18:51] MED LIST changes: +FAMO-136 PO; -OMEP40CA21 PO; -PREN-147 PO; -SUCR1TAB PO
--- NOTE | 2025-03-14 19:11 | ERN ---
ED Note History of Present Illness Stated Complaint: CHEST PAIN Chief Complaint: Chest Pain Time Seen by MD: 18:57 Dictation: PATIENT IS A 34-YEAR-OLD FEMALE COMING IN TODAY THE EMERGENCY ROOM WITH COMPLAINTS OF BURNING SQUEEZING PAIN TO HER EPIGASTRIUM AREA ONSET HAS BEEN SEVERAL DAYS PRIOR TO ARRIVAL. NO NAUSEA VOMITING NO JAW PAIN NO ARM PAIN NO BACK PAIN. SHE WAS ADMITTED HERE TWO DAYS AGO AND WAS DISCHARGED ON THE . SHE HAD EVALUATIONS BY GASTROENTEROLOGY, CARDIOLOGY AND FAMILY MEDICINE. THE CONCLUSION WAS THAT THIS WAS GASTRIC IN ORIGIN AND NOT CARDIAC. DR. MULLINS AT WANTED TO PERFORM AN EGD ON 03/13 HELP EVER PATIENT REFUSED AND DECIDED TO LEAVE THE HOSPITAL WITHOUT THE PROCEDURE. SHE IS NOW BACK AND STATES SHE WOULD LIKE TO CONTINUE THE TREATMENT I TOLD HER I WOULD RULE OUT AN ACUTE MD OR ACS IF NONE WAS PRESENT I WOULD SEND HER OUT WITH GI ETIOLOGY AND TREAT WITH MEDICATIONS AND HAVE HER FOLLOW UP WITH DR. MULLINS NEXT WEEK. IS AT BEDSIDE. PATIENT DOES STATE SHE ATE 3 HOURS AGO AND IT DID NOT CHANGE THE CONSISTENCY OR CHARACTER OF THE PAIN. Allergies: Coded Allergies: No Known Drug Allergies (Unverified Allergy, Unknown, 10/17/14) Home Meds Active Scripts Famotidine (Pepcid) 20 Mg Tablet, 1 TAB PO BID for 10 Days, #20 TAB 0 Refills Prov:ALY KAPLAN MD 03/11/25 Discontinued Reported Medications Vits #90/Iron Fum/FA ( Formula Tablet) 1 Each Tablet, 1 EACH PO DAILY, TAB 12/27/16 Discontinued Scripts Sucralfate (Carafate) 1 Gram Tablet, 1 GM PO QID, #40 TAB Prov:SEJAL MIRANDA NP 07/28/23 Omeprazole (Omeprazole) 40 Mg Capsule., 40 MG PO DAILY, #30 CAP Prov:SEJAL MIRANDA CHEMISTRY LABORATORY TECHNICIAN 07/28/23 Past Medical History Past Medical History: Anxiety, Depression, Hypertension Surgical History: Surgical History Other: 4 X History: Not Applicable LMP: Feb 14, 2025 RN Note Reviewed/Agreed w/PFSH: Yes Review of System Dictation CONSTITUTIONAL: Negative except for HPI HEAD/FACE: Negative except for HPI EENT: Negative except for HPI RESPIRATORY: Negative except for HPI GASTROINTESTINAL/ABDOMINAL: Negative except for HPI epigastric/substernal pain burning GENITOURINARY: Negative except for HPI MUSCULOSKELETAL: Negative except for HPI INTEGUMENTARY: Negative except for HPI NEUROLOGICAL/PSYCH: Negative except for HPI HEMATOLOGIC/LYMPHATIC: Negative except for HPI All Systems Negative, Except as noted above. 13 point review of systems assessed and all negative except for above. Initial Vital Sign VS Vital Signs Date Time Temp Pulse Resp B/P (MAP) Pulse Ox O2 Delivery O2 Flow Rate FiO2 03/14/25 18:55 98.1 94 20 118/80 99 Room Air 03/14/25 19:20 0 21 Physical Exam Dictation Vital Signs reviewe mild acute distress, well developed, nourished. Anxious/obese Head and Face: non-traumatic. Eyes: PERRL, pink conjunctivas, eyelid no trauma, anterior chamber with arcus senilis. Ears: Pinnas intact and no signs of trauma or erythema ear canals clear and no discharge TM no erythema Nose: No discharge, no bleeding. Oropharynx: Mouth normal, tongue pink, pharynx clear,no erythema, tonsils no exudates, no abscesses noted, mucous membrane moist Neck: Supple, non-tender, no thyromegaly, no masses, no JVD, no bruits Breast:Deferred Chest:No tenderness, no crepitus, no paradoxical movement, no retractions Lungs:Clear, well-ventilated, symmetric, no rales, no wheezing, no rhonchi, no stridor, good breath sounds bilaterally Heart: Regular rate, regular rhythm, no murmur, no gallops Vascular: no peripheral edema, Abdomen: Soft, positive bowel sounds, nondistended, no guarding, n mild epigastric tenderness with palpation, no rebound, no masses no hepatomegaly, no splenomegaly, no Rodriguez's sign, no hernias. Rectal: Deferred Genital: Deferred Neurological: Normal speech, motor function intact, sensory function intact Musculoskeletal: Neck nontender, full range of motion, back nontender, full range of motion, Extremities: nontender, full range of motion Skin: Color pink, dry, no turgor, no rash, no lacerations, no abrasions, no contusions. Lymphatic: Deferred Results (Laboratory/Radiology) Laboratory/Radiology Laboratory Tests Test 03/14/25 19:20 White Blood Count 14.8 K/uL (4.8-10.8) H Red Blood Count 4.51 MIL/uL (4.00-5.50) Hemoglobin 14.2 g/dL (12.0-16.0) Hematocrit 40.3 % (36-48) Mean Corpuscular Volume 89.4 fL (79-99) Mean Corpuscular Hemoglobin 31.5 pg (27.0-33.0) Mean Corpuscular Hemoglobin Concent 35.2 g/dL (32.0-36.0) Red Cell Distribution Width 12.2 % (11.0-15.5) Platelet Count 317 K/uL (130-400) Mean Platelet Volume 9.4 fL (7.5-10.5) Immature Granulocyte % (Auto) 0.4 % (0-1) Neutrophils (%) (Auto) 55.4 % (40.0-77.0) Lymphocytes (%) (Auto) 33.8 % (21.0-51.0) Monocytes (%) (Auto) 7.7 % (3.0-13.0) Eosinophils (%) (Auto) 2.2 % (0.0-8.0) Basophils (%) (Auto) 0.5 % (0.0-5.0) Neutrophils # (Auto) 8.2 K/uL (1.8-7.7) H Lymphocytes # (Auto) 5.0 K/uL (1.0-4.8) H Monocytes # (Auto) 1.1 K/uL (0.1-1.0) H Eosinophils # (Auto) 0.33 K/uL (0.00-0.70) Basophils # (Auto) 0.07 K/uL (0.00-0.20) Absolute Immature Granulocyte (auto 0.06 K/uL (0-1) Segmented Neutrophils % 59 % (40-70) Band Neutrophils % 3 % (0-2) H Lymphocytes % (Manual) 16 % (22-44) L Monocytes % (Manual) 4 % (2-9) Eosinophils % (Manual) 2 % (1-6) Nucleated Red Blood Cells 0.0 % (0.0-0.19) Differential Comment MANUAL DIFFERENTIAL Reactive Lymphocytes 16 % (0-0) H White Cell Morphology Comment Platelet Morphology Comment Red Blood Cell Morphology See comments Sodium Level 136 mmol/L (136-145) Potassium Level 3.7 mmol/L (3.5-5.1) Chloride Level 99 mmol/L (101-111) L Carbon Dioxide Level 28 mmol/L (21-32) Blood Urea Nitrogen 9 mg/dL (7-18) Creatinine 0.6 mg/dL (0.5-1.0) Glomerular Filtration Rate Calc 121 mL/min (>90) Random Glucose 92 mg/dL (70-105) Total Calcium 9.2 mg/dL (8.5-10.1) Troponin I High Sensitivity 63 ng/L (4-50) *H Lipase 48 U/L (16-77) Labs Reviewed?: Yes EKG: (+) NSR EKG Comment: EKG normal sinus rhythm/heart rate 83/axis normal/no ectopy ED Course ED Course Orders Procedure Category Date Status Time 12 Lead Ekg Tracing- EKG 03/14/25 Logged Technical 18:55 Sucralfate (Carafate) PHA 03/14/25 In Process 19:30 Cbc With Differential LAB 03/14/25 In Process 19:08 Troponin I High LAB 03/14/25 Complete Sensitivity 19:08 12 Lead Ekg Tracing- EKG 03/14/25 Logged Technical 19:08 Lipase LAB 03/14/25 Complete 19:08 Basic Metabolic Panel LAB 03/14/25 Complete 19:08 Manual Differential LAB 03/14/25 In Process 19:20 Current Medications Medications (Trade) Dose Ordered Sig/Jojo Route PRN Reason Start Time Stop Time Status Last Admin Dose Admin Sucralfate (Carafate) 1 gm ONCE PO 03/14/25 19:30 04/13/25 19:29 03/14/25 19:35 Vital Signs Date Time Temp Pulse Resp B/P (MAP) Pulse Ox O2 Delivery O2 Flow Rate FiO2 03/14/25 20:20 88 15 118/80 99 Room Air* 0 21 03/14/25 19:20 98.1 91 17 117/83 99 Room Air* 0 21 03/14/25 18:55 98.1 94 20 118/80 99 Room Air 2110/PATIENT WILL BE DISCHARGED HOME WITH A ACUTE GASTRITIS. SHE WILL BE DISCHARGED HOME WITH THE OMEPRAZOLE AND AN CARAFATE. SHE WILL BE TOLD TO FOLLOW UP WITH DR. JUVE MULLINS IN THE NEXT 1-2 DAYS AND CALL FOR AN APPOINTMENT. SHE WILL BE INSTRUCTED ON A BLAND DIET WITH WATER FOR FLUIDS ONLY. SHE IS AWARE THAT THE ETIOLOGY OF THIS IS NOT CARDIAC IT IS BELIEVED BY SEVERAL PARTIES OF DOCTORS AT THIS IS GASTRIC AND SHE NEEDS TO FOLLOW UP WITH GASTROENTEROLOGY. ALL QUESTIONS ANSWERED. HEART Score Response (Comments) Value History: Low suspicion (0) 0 EKG: Normal 0 Age: < 45yrs (0) 0 Risk Factors: No known risk factors (0) 0 Initial Troponin: Normal limit (0) 0 Total 0 Medical Decision Making MDM MDM: DIFFERENTIAL DIAGNOSIS: ACS/AMI/ELECTROLYTE IMBALANCE/DEHYDRATION/GASTRITIS/PANCREATITIS RATIONALE: TESTS CONSIDERED AND ORDERED SECONDARY TO SHARED DECISION MAKING INCLUDE: EKG/LABS PREVIOUS OUTSIDE RECORDS REVIEWED: OLD ER VISITS. RISK OF COMPLICATION AND/OR MORBIDITY OR MORTALITY OF PATIENT MANAGEMENT: NONE MEDICATIONS-PER MEDICATION RECONCILIATION NEED FOR HOSPITALIZATION: PATIENT DOES NOT MEET CRITERIA FOR HOSPITALIZATION. NO NEED FOR EMERGENCY MAJOR/MINOR SURGERY: NO THERE ARE NO SOCIAL CONCERNS WITH THIS PATIENT. PRESCRIPTION DRUG MANAGEMENT OMEPRAZOLE/CARAFATE PRESCRIPTIONS WILL INCLUDE SYMPTOMATIC CARE PATIENT'S PRIOR EXTERNAL MEDICAL RECORDS FROM OTHER ER VISITS WERE REVIEWED BY ME INDICATED. PRIOR TESTING AND RESULTS FROM PREVIOUS VISITS WERE REVIEWED. PRIOR TESTS WERE TAKEN INTO ACCOUNT WITH MEDICAL DECISION MAKING AND RESOURCE UTILIZATION, INDEPENDENT HISTORIAN/HISTORIANS WERE USED TO OBTAIN COMPLETE MEDICAL HISTORY. I INDEPENDENTLY INTERPRETED THE TEST THAT WERE PERFORMED, RESULTS WERE REVIEWED BY ME AND CONSIDERED FINDINGS ON RADIOLOGY IF ORDERED. MEDICAL MANAGEMENT AND EXAMINATION INTERPRETATION DISCUSSIONS WERE HAD BY ME WITH OTHER QUALIFIED HEALTHCARE PROFESSIONALS INDICATED FOR THE PATIENT'S CARE. DX & DISP Disposition: Discharge Departure Impression: Primary Impression: Acute gastritis Additional Impressions: Anxiety, Elevated troponin level not due to acute coronary syndrome Condition: Stable Scripts Omeprazole (Omeprazole) 40 Mg Capsule.dr 1 CAP PO DAILY for 30 Days, #30 CAP 0 Refills Prov: SEJAL MIRANDA NP 03/14/25 Sucralfate (Carafate) 1 Gram Tablet 1 GM PO ACHS for 10 Days, #40 TAB Prov: SEJAL MIRANDA NP 03/14/25 Referrals: MAGNO MORENO MD (PCP) SEJAL MIRANDA NP Mar 14, 2025 19:11
--- NOTE | 2025-03-14 19:20 | NUR ---
PT CARE ASSUMED AT THIS TIME
[2025-03-14 19:27] LABS: IMMATURE GRANULOCYTE ABSOLUTE 0.06 K/uL (0-1); NUCLEATED RED BLOOD CELLS 0.0 % (0.0-0.19); PLATELET COUNT (AUTO) 317 K/uL (130-400); RED BLOOD CELL COUNT(AUTO) 4.51 MIL/uL (4.00-5.50); RED CELL DISTRIBUTION WIDTH 12.2 % (11.0-15.5); WHITE BLOOD COUNT (AUTO) 14.8 K/uL (4.8-10.8)
[2025-03-14] MEDS: SUCRALFATE 1 GM TABLET PO SCH (19:35)
[2025-03-14 19:40] LABS: CREATININE 0.6 mg/dL (0.5-1.0); GLOMERULAR FILTR. RATE CALC 121.0 mL/min (>90); GLUCOSE,RANDOM 92.0 mg/dL (70-105); SODIUM SERUM 136.0 mmol/L (136-145); UREA NITROGEN, BLOOD 9.0 mg/dL (7-18)
[2025-03-14 20:09] LABS: BAND NEUTROPHILS % (MANUAL) 3 % (0-2); EOSINOPHILS % (MANUAL) 2 % (1-6); LYMPHOCYTES % (MANUAL) 16 % (22-44); MONOCYTES % (MANUAL) 4 % (2-9); REACTIVE LYMPHOCYTES 16 % (0-0); SEGMENTED NEUTROPHILS % 59 % (40-70)
[2025-03-14 20:10] LABS: MAN.DIFF COMMENT-IMPRESSION MANUAL DIFFERENTIAL
[2025-03-14] MEDS ORDERED: SUCR1TAB28 PO (21:13)
[2025-03-14] MEDS ORDERED: OMEP40CA21 PO (21:13)
[2025-03-14 21:26] VITALS: BP 109/73; PULSE 90; RESP 15; TEMP 98.2; O2SAT 100
--- NOTE | 2025-03-15 07:28 | EKG ---
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
== END 2025-03-14 21:32 | disposition home or self-care (01) ==
LOC: EDH 18:51
DX: K29.00 Acute gastritis without bleeding (principal); F41.9 Anxiety disorder, unspecified; R79.89 Other specified abnormal findings of blood chemistry; I10 Essential (primary) hypertension; Z79.899 Other long term (current) drug therapy; Z98.890 Other specified postprocedural states
CPT/HCPCS: 36415; 80048; 83690; 84484; 85025; 93005; 99284